=== PATIENT | female | born 1980 | race Caucasian/White ===

== ENCOUNTER 2019-06-13 15:38 | Emergency (ER) | payer SELFPAY ==
[~2019-06-13] VITALS: Ht 165.1 cm; Wt 49.9 kg
--- NOTE | 2019-06-13 15:55 | NUR ---
PATIENT WAS SEEN BY MD. IV PLACED. PLACED ON A MONITOR.
[2019-06-13] MEDS ORDERED: KETOROLAC TROMETHAMINE 30 MG INJ IVP ONE (16:15)
[2019-06-13] MEDS ORDERED: HYDROMORPHONE 1 MG/1 ML DISP.SYRIN IV ONE (16:15)
[2019-06-13] MEDS ORDERED: ONDANSETRON 4 MG/2 ML VIAL IV ONE (16:15)
[2019-06-13] MEDS ORDERED: IV NORMAL SALINE 1000 ML BAG IV ONE (16:15)
[2019-06-13 16:17] LABS: BASOPHILS % (AUTO) 0.2 % (0.0-2.0); EOSINOPHILS # (AUTO) 0.1 K/uL (0.0-0.7); EOSINOPHILS % (AUTO) 0.4 % (0.0-7.0); HEMOGLOBIN 14.8 g/dL (10.9-14.3); LYMPHOCYTES # (AUTO) 0.8 K/uL (20.0-40.0); LYMPHOCYTES % (AUTO) 5.1 % (20.5-51.5); MEAN CORPUSCULAR HEMOGLOBIN 32.3 uug (24.7-32.8); MEAN CORPUSCULAR HGB CONC 34 g/dL (32.3-35.6); MEAN CORPUSCULAR VOLUME 95.6 fL (75.5-95.3); MONOCYTES % (AUTO) 6.2 % (0.0-11.0); NEUTROPHILS # (AUTO) 14.2 K/uL (1.8-8.9); NEUTROPHILS % (AUTO) 88.1 % (38.5-71.5); PLATELET COUNT (AUTO) 168 K/uL (179-408); WHITE BLOOD COUNT (AUTO) 16.1 K/uL (3.8-11.8)
[2019-06-13] MEDS ORDERED: ONDANSETRON 4 MG/2 ML VIAL ONE (16:22)
[2019-06-13] MEDS ORDERED: KETOROLAC TROMETHAMINE 30 MG INJ ONE (16:22)
[2019-06-13] MEDS ORDERED: HYDROMORPHONE 1 MG/1 ML DISP.SYRIN ONE (16:22)
[2019-06-13 16:25] LABS: CARBON DIOXIDE 27 mmol/L (21-32); CHLORIDE 103 mmol/L (98-107); CREATININE 0.8 mg/dL (0.6-1.3); GLUCOSE 93 mg/dL (74-106); POTASSIUM 3.8 mmol/L (3.5-5.1); UREA NITROGEN, BLOOD 10 mg/dL (7-18)
[2019-06-13 16:31] LABS: ALANINE AMINOTRANSFERASE 17 U/L (14-59); ALKALINE PHOSPHATASE 52 U/L (50-136); ASPARTATE AMINOTRANSFERASE 12 U/L (15-37); BILIRUBIN,DIRECT 0.3 mg/dL (0.0-0.2); BILIRUBIN,TOTAL 1.4 mg/dL (0.2-1.0); TOTAL PROTEIN, SERUM 7.9 g/dL (6.4-8.2)
[2019-06-13 17:31] LABS: *BILIRUBIN,URIN NEGATIVE (NEGATIVE); *BLOOD, URINE 1+ (NEGATIVE); *COLOR,URINE YELLOW (YELLOW); *KETONES,URINE 1+ (NEGATIVE); LEUKOCYTE ESTERASE ,URINE TRACE (NEGATIVE); NITRITE, URINE POSITIVE (NEGATIVE); UGLUCOSE NEGATIVE (NEGATIVE)
[2019-06-13 17:33] LABS: *CLARITY,URINE SLIGHTLY CLOUDY (CLEAR)
--- NOTE | 2019-06-13 17:37 | NUR ---
PATIENT STATES PAIN HAS DIMINISHED. SHE WAS ABLE TO QAQMBULATE TO THE BATHROOM WITH STEADY GAIT AND PROVIDE A URINE SAMPLE.
[2019-06-13 17:45] LABS: BACTERIA,URINE MANY /HPF (NONE SEEN); SQUAMOUS EPITHELIAL CELL,UR MODERATE /HPF (NONE SEEN)
[2019-06-13] MEDS ORDERED: SWABABLE VALVE TRANSFER SET EA MC ONE (17:45)
[2019-06-13] MEDS ORDERED: IV NORMAL SALINE 250 ML IV ONE (17:45)
[2019-06-13] MEDS ORDERED: IOHEXOL 300MG/ML 100 ML INFUS..BTL ONE (17:45)
--- NOTE | 2019-06-13 17:48 | NUR ---
PATIENT SIGNED CONSENT FOR IV CONTRAST...
[2019-06-13] MEDS ORDERED: MORPHINE SULFATE 4 MG/1 ML DISP.SYRIN IV ONE (18:15)
--- NOTE | 2019-06-13 19:04 | NUR ---
PATIENT STATES SHE DOES NOT WANT MORHPINE AND PREFERS DILAUDID IN THE FUTIRE BECAUSE "MORPHINE MAKES ME FEEL LIKE I JUST WANT TO LEAVE"
--- NOTE | 2019-06-13 19:06 | NUR ---
IV removed. Catheter intact and site benign. Pressure and 4x4 gauze applied to site. No bleeding noted.
--- NOTE | 2019-06-13 19:07 | NUR ---
DC, RX (INCLUDING PRECAUTIONS) AND FOLLOW UP INSTRUCTIONS GIVEN AND EXPLAINED TO PATIENT WHO STATES SHE UNDERSTANDS ALL INSTRUCTIONS. PATIENTS BOYFRIEND TO DRIVE. PATIENT STATES PAIN IS "OK RIGHT NOW"
[2019-06-13 19:11] VITALS: BP 117/78
== END 2019-06-13 19:11 | disposition home or self-care (01) ==
LOC: ER 15:40
DX: R10.9 Unspecified abdominal pain (principal); R11.2 Nausea with vomiting, unspecified; R35.0 Frequency of micturition; Z88.1 Allergy status to other antibiotic agents
CPT/HCPCS: 36415; 74177; 76770; 76856; 80048; 80076; 81000; 81001; 84702; 85025; 87086; 87186; 96361; 96374; 96375; 99284; J1170; J1885; J2405; Q9967; A4663; J7030; J7050